=== PATIENT | male | born 1940 | race Caucasian/White ===

== ENCOUNTER 2021-12-06 13:47 | Emergency (ER) | payer MEDICARE, BC ==
[2021-12-06] MEDS ORDERED: Ketorolac 30 MG/ML SDV IM ONE (14:25)
[2021-12-06] MEDS ORDERED: Acetaminophen 500 MG Tab PO ONE (14:30)
== END 2021-12-06 14:55 | disposition home or self-care (01) ==
LOC: FB.ED 13:47
DX: S46.012A Strain of muscle(s) and tendon(s) of the rotator cuff of left shoulder, initial encounter (principal); Z79.899 Other long term (current) drug therapy; Z79.82 Long term (current) use of aspirin; Z79.84 Long term (current) use of oral hypoglycemic drugs; X58.XXXA Exposure to other specified factors, initial encounter
CPT/HCPCS: 73030; 96372; 99283; A9270; J1885; 99282